=== PATIENT | male | born 1965 | race American Indian/Alaskan Native ===

== ENCOUNTER 2017-11-29 05:25 | Emergency (ER) | payer SELFPAY ==
[2017-11-29 05:31] VITALS: BP 147/98
[2017-11-29] MEDS ORDERED: MOTRIN ONE (05:34)
[2017-11-29] MEDS ORDERED: MOTRIN PO ONE (06:10)
--- NOTE | 2017-11-29 06:43 | XRay Report ---
FINAL REPORT EXAM: XR CALCANEOUS 2+V RT HISTORY: right heel pain COMPARISONS: None. FINDINGS: Watkins and lateral views of the right calcaneus No coalition, gross malalignment or deformity. Joint spaces are within normal limits. No fracture or periosteal reaction. Small calcaneal heel spur and Achilles insertional enthesophytes. IMPRESSION: No acute findings. Achilles insertional calcific tendinopathy and a small calcaneal heel spur may contribute to patient's symptoms.
--- NOTE | 2017-11-29 08:38 | Emergency Department Report ---
ED Lower Extremity HPI - General Chief Complaint: Extremity Injury, Lower Stated Complaint: BODY PAIN Time Seen by Provider: 11/29/17 07:26 Source: patient Mode of arrival: Ambulatory Limitations: No Limitations - History of Present Illness Initial Comments: This is a 52-year-old male here report that he fell after a bee sting yesterday and he said he is having pain to his body that has resolved but now he is having right heel pain the pain is 10 out of 10 and he said it makes it difficult to walk.no numbness or tingling. Denies any fever or chills. Denies any rash or itching to his feet. Denies any change in color. Denies any change in sensation or temperature to feet. Pain feels achy all walking. Better with resting. MD Complaint: foot injury (right heel pain), fall -: During the night Injury: Foot: Right (right heel pain) Type of Injury: other (he reports that he fell and hurt his right heel) Severity: severe Severity scale (0 -10): 10 Improves With: rest Worsens With: weight bearing Context: fall Associated Symptoms: able to partially bear weight. denies: snap/pop sensation , swelling, numbness Treatments Prior to Arrival: other (none) - Related Data Previous Rx's Medication Instructions Recorded Last Taken Type Ibuprofen [Motrin] 800 mg PO Q8HR PRN #15 tablet 11/29/17 Unknown Rx Allergies Allergy/AdvReac Type Severity Reaction Status Date / Time Penicillins Allergy Hives Verified 11/29/17 06:09 ED Review of Systems ROS: Stated complaint: BODY PAIN Other details as noted in HPI Constitutional: denies: chills, fever Respiratory: denies: cough, shortness of breath, SOB with exertion, SOB at rest , stridor, wheezing Cardiovascular: denies: chest pain, palpitations, edema, syncope Gastrointestinal: denies: nausea, vomiting Genitourinary: dysuria Musculoskeletal: arthralgia. denies: back pain, joint swelling, myalgia Skin: denies: rash, lesions, pruritus Neurological: denies: headache, weakness, numbness, paresthesias, abnormal gait , vertigo ED Past Medical Hx - Past Medical History Previous Medical History?: No - Surgical History Past Surgical History?: No - Family History Family history: no significant - Social History Smoking Status: Never Smoker Substance Use Type: None - Medications Home Medications: Home Medications Medication Instructions Recorded Confirmed Last Taken Type Ibuprofen [Motrin] 800 mg PO Q8HR PRN #15 tablet 11/29/17 Unknown Rx ED Physical Exam - General Limitations: No Limitations General appearance: alert, in no apparent distress - Head Head exam: Present: atraumatic, normocephalic, normal inspection - Eye Eye exam: Present: normal appearance, PERRL, EOMI - ENT ENT exam: Present: normal exam, mucous membranes dry, mucous membranes moist - Neck Neck exam: Present: normal inspection, full ROM, other (no C-spine tenderness). Absent: tenderness, lymphadenopathy - Respiratory Respiratory exam: Present: normal lung sounds bilaterally. Absent: respiratory distress, chest wall tenderness - Cardiovascular Cardiovascular Exam: Present: regular rate, normal rhythm, normal heart sounds. Absent: systolic murmur, diastolic murmur - GI/Abdominal GI/Abdominal exam: Present: soft, normal bowel sounds. Absent: tenderness, rigid - Extremities Exam Extremities exam: Present: normal inspection, full ROM, tenderness (mild tenderness to palpate to right calcaneal. No laceration, abrasion, swelling or ecchymotic areas to heals.), normal capillary refill, other (No cce. + 2 pulses in all extremities, no neurovascular compromise. No joint deformities or effusion. No crepitus. +5 strength in all extremities). Absent: pedal edema, joint swelling, calf tenderness - Back Exam Back exam: Present: normal inspection, full ROM, other (ambulates without any difficulties). Absent: tenderness, muscle spasm, paraspinal tenderness, vertebral tenderness, rash noted - Neurological Exam Neurological exam: Present: alert, oriented X3, normal gait, reflexes normal. Absent: motor sensory deficit - Psychiatric Psychiatric exam: Present: normal affect, normal mood - Skin Skin exam: Present: warm, dry, intact, normal color. Absent: rash ED Course Vital Signs 11/29/17 11/29/17 05:24 06:03 Temperature 97.6 F 97.6 F Pulse Rate 74 67 Respiratory 18 18 Rate Blood Pressure 147/98 147/98 O2 Sat by Pulse 93 96 Oximetry - Reevaluation(s) Reevaluation #1: 11/29/17 09:00 She was given Motrin 800 mg at emergency room for right heel pain. Pain is relieved. X-ray found that he has calcaneal spur with some chronic tendanopathy but no acute findings - Orthopedic Splinting/Casting Injury #1 Side: right Lower Extremity Injury Location: foot Other Orthopedic Equipment: crutches ED Lower Extremity MDM - Radiology Data Radiology results: report reviewed X-ray two-view right foot shows Achilles calcific tendon opacity and small calcaneal heel spur. No acute findings. This was dictated by radiologist and report reviewed by myself. Please see report below. Patient: GEO AKBAR MR#: [id number] : 1965 Acct:[id number] Age/Sex: 52 / M ADM Date: 11/29/17 Loc: ED Attending Dr: Ordering Physician: JACQUELINE YATES MD Date of Service: 11/29/17 Procedure(s): XR calcaneous 2+V RT Accession Number(s): [id number] cc: ED MD MILAN Fluoro Time In Minutes: FINAL REPORT EXAM: XR CALCANEOUS 2+V RT HISTORY: right heel pain COMPARISONS: None. FINDINGS: Watkins and lateral views of the right calcaneus No coalition, gross malalignment or deformity. Joint spaces are within normal limits. No fracture or periosteal reaction. Small calcaneal heel spur and Achilles insertional enthesophytes. IMPRESSION: No acute findings. Achilles insertional calcific tendinopathy and a small calcaneal heel spur may contribute to patient's symptoms. Transcribed By: RAFAEL Dictated By: ALEJANDRA HOLT MD Electronically Authenticated By: ALEJANDRA HOLT MD Signed Date/Time: 11/29/17635 DD/ 5 TD/TT: 11/29/17635 - Medical Decision Making This 52-year-old male here reports that he fell yesterday and now is having right heel pain which she has not had in the past. He said he was having body pain but that has resolved. He denies any obvious injuries to his right heel. Patient was seen and examined by myself and extremity exam is normal, pedal pulses are 2+ and bounding. He has good color, sensation, movement and temperature to all his extremities. Patient without any abdomen due to both heels. He has mild tenderness to right heel. X-ray 2 view of right heel dictated by radiologist and report reviewed by myself and no acute findings. He has right heel spur with Achilles tendonopathy which is chronic. I discussed x-ray results with patient and his diagnosis and treatment plan. I discussed with him that he needs to follow-up with Dr. Haines primary care doctor. Patient is requesting crutches because he said it hurts when he walks on his right foot. Pain controlled with Motrin Right heel pain-Motrin 800 milligrams by mouth 1 given in emergency room and pain is better and will discharge him on Motrin. Referred to [facility] as he does not have a primary care doctor and also to wellness specialist. Patient discharged home in stable condition. Vital signs are stable, pain is controlled. He was given crutches with return demonstration. I explained to him that he needs to follow-up with wellness specialist primary care physician and he voiced understanding .discharged home with prescription for Motrin. - Differential Diagnosis heel fracture, heel spur, plantar fasciitis, tendinitis, sprain, MSK pain Critical care attestation.: If time is entered above; I have spent that time in minutes in the direct care of this critically ill patient, excluding procedure time. ED Disposition Clinical Impression: Calcaneal spur, right, Right foot pain, Calcific Achilles tendonitis Disposition: - TO HOME OR SELFCARE Is pt being admited?: No Does the pt Need Aspirin: No Condition: Stable Instructions: Arthralgia (ED), Achilles Tendinitis (ED), Ankle Exercises (GEN) , How to Give a Foot Massage (GEN), Crutch Instructions (ED) Additional Instructions: Please use crutches as discussed. Follow-up Foot DrClyde in 3-5 days follow up at [facility] for primary care Rest Affected area for 3 days See discharge instruction in Rice therapy Prescriptions: Ibuprofen [Motrin] 800 mg PO Q8HR PRN #15 tablet PRN Reason: foot pain Referrals: PRIMARY CARE, [Primary Care Provider] - 3-5 Days GERALDO COLON DPM [Staff Physician] - 3-5 Days [facility] [Outside] - 3-5 Days Forms: Work/School Release Form(ED)
== END 2017-11-29 09:33 | disposition home or self-care (01) ==
LOC: ED 05:25
DX: M77.31 Calcaneal spur, right foot (principal); M76.61 Achilles tendinitis, right leg; Z88.0 Allergy status to penicillin
CPT/HCPCS: 99283

== ENCOUNTER 2018-08-14 18:40 | Emergency (ER) | payer SELFPAY ==
--- NOTE | 2018-08-14 19:26 | Emergency Department Report ---
Blank Doc - Documentation Documentation: 53 y/o male c/o CP, SOB and dry mouth and BIRCH. pain 12/12. PMH HTN not had any meds in 4 months. Orders: CP protocol.
[2018-08-14 19:59] LABS: Basophils # (Auto) 0.1 K/mm3 (0.0-0.1); Basophils % (Auto) 0.9 % (0.0-1.8); Eosinophils # (Auto) 0.2 K/mm3 (0.0-0.4); Eosinophils % (Auto) 1.5 % (0.0-4.3); Hematocrit 41.9 % (35.5-45.6); Hemoglobin 14.2 gm/dl (11.8-15.2); Lymphocytes # (Auto) 2.9 K/mm3 (1.2-5.4); Lymphocytes % (Auto) 27.2 % (13.4-35.0); Mean Corpuscular HGB Conc 34 % (32-34); Mean Corpuscular Volume 82 fl (84-94); Monocytes # (Auto) 1.1 K/mm3 (0.0-0.8); Platelet Count 241 K/mm3 (140-440); Red Blood Count 5.11 M/mm3 (3.65-5.03); Red Cell Distribution Width 15.5 % (13.2-15.2)
[2018-08-14 20:17] LABS: Alanine Aminotransferase 18 units/L (7-56); Albumin 4.2 g/dL (3.9-5); BUN/Creatinine Ratio 12; Blood Urea Nitrogen 13 mg/dL (9-20); Calcium 9.3 mg/dL (8.4-10.2); Hemolysis Index 89
--- NOTE | 2018-08-14 20:25 | XRay Report ---
PROCEDURE: XR CHEST ROUTINE 2V TECHNIQUE: PA and lateral chest radiographs were obtained. HISTORY: Chest Pain COMPARISONS: None. FINDINGS: Heart: Normal. Mediastinum/Vessels: Normal. Lungs/Pleural space: A small well-defined nodule measuring 6 mm is noted in the right lower lung on the frontal view. There are no confluent infiltrates. Pleural spaces are clear. Bony thorax: No acute osseous abnormality. IMPRESSION: A 6 mm nodule in the right mid lung most likely represents a calcified granuloma. Compar yony with any prior studies would be of help. Otherwise a CT chest is recommended.. This document is electronically signed by Deshaun Childs MD., August 14 2018 08:23:40 PM ET
--- NOTE | 2018-08-14 23:59 | Emergency Department Report ---
HPI - General Chief Complaint: Chest Pain Time Seen by Provider: 08/14/18 22:20 - HPI HPI: 53-year-old -Italian male presents to the emergency department with a complaint of some throat pain, chest pain, and spitting up blood. He says it all started last night when he had some type of apneic episode. At least his said that he stopped breathing for a short amount of time. He does not have any known sleep apnea and says that he is not a known smoker. He woke up with a very dry, sore throat. He also feels that he has a lot of mucus and secretions that he has been trying to get up. Earlier today he thought it was mucus and he had some blood come up. He also complained of some midsternal, nonradiating chest pain. It has been going on intermittently over the past few days. He denies any fever, back pain, shortness of breath. He has not taken anything for his symptoms to presentation. No sick contacts at home. He does not have a primary care physician. ED Past Medical Hx - Social History Smoking Status: Never Smoker Substance Use Type: None - Medications Home Medications: Home Medications Medication Instructions Recorded Confirmed Last Taken Type Ibuprofen [Motrin] 800 mg PO Q8HR PRN #15 tablet 11/29/17 Unknown Rx Sulfamethoxazole/Trimethoprim 1 each PO BID #14 tablet 08/15/18 Unknown Rx [Bactrim DS TAB] ED Review of Systems ROS: Stated complaint: CHEST PAIN/ELMER/VOMITING BLOOD Other details as noted in HPI Comment: All other systems reviewed and negative Constitutional: denies: chills, fever Eyes: denies: eye pain, vision change ENT: throat pain. denies: ear pain Respiratory: denies: cough, wheezing Cardiovascular: chest pain. denies: palpitations Gastrointestinal: denies: abdominal pain, diarrhea Genitourinary: denies: dysuria, discharge Musculoskeletal: denies: back pain, arthralgia Skin: denies: rash, lesions Neurological: denies: headache, weakness Physical Exam - Physical Exam Vital Signs: Vital Signs 08/14/18 08/14/18 08/14/18 19:21 22:17 22:30 Temperature 98.6 F Pulse Rate 110 H 98 H 88 Respiratory 16 12 Rate Blood Pressure 157/95 Blood Pressure 172/117 [Left] O2 Sat by Pulse 97 99 Oximetry 08/14/18 08/14/18 08/14/18 22:45 23:00 23:15 Temperature Pulse Rate 87 85 76 Respiratory 17 17 15 Rate Blood Pressure 157/95 151/102 151/102 Blood Pressure [Left] O2 Sat by Pulse 96 96 98 Oximetry 08/14/18 08/14/18 23:30 23:46 Temperature Pulse Rate 77 76 Respiratory 15 15 Rate Blood Pressure 131/78 151/102 Blood Pressure [Left] O2 Sat by Pulse 93 92 Oximetry Physical Exam: GENERAL: The patient is well-developed well-nourished. HEENT: Normocephalic. Atraumatic. Patient has moist mucous membranes. No drooling or trismus. Patient has moderate to severe tonsillar hypertrophy with bilateral tonsillar exudates. EYES: Extraocular motions are intact. Pupils are equal and reactive to light bilaterally. NECK: Supple. Trachea is midline. CHEST/LUNGS: Clear to auscultation. There is no respiratory distress noted. HEART/CARDIOVASCULAR: Regular. There is no tachycardia. There is no obvious murmur. ABDOMEN: Abdomen is soft, nontender. Patient has normal bowel sounds. There is no abdominal distention. SKIN: Skin is warm and dry. NEURO: The patient is awake, alert, and oriented. The patient is cooperative. The patient has no focal neurologic deficits. The patient has normal speech. MUSCULOSKELETAL: There is no tenderness or deformity. There is no limitation range of motion. There is no evidence of acute injury. ED Course Vital Signs 08/14/18 08/14/18 08/14/18 19:21 22:17 22:30 Temperature 98.6 F Pulse Rate 110 H 98 H 88 Respiratory 16 12 Rate Blood Pressure 157/95 Blood Pressure 172/117 [Left] O2 Sat by Pulse 97 99 Oximetry 08/14/18 08/14/18 08/14/18 22:45 23:00 23:15 Temperature Pulse Rate 87 85 76 Respiratory 17 17 15 Rate Blood Pressure 157/95 151/102 151/102 Blood Pressure [Left] O2 Sat by Pulse 96 96 98 Oximetry 08/14/18 08/14/18 23:30 23:46 Temperature Pulse Rate 77 76 Respiratory 15 15 Rate Blood Pressure 131/78 151/102 Blood Pressure [Left] O2 Sat by Pulse 93 92 Oximetry ED Medical Decision Making - Lab Data Result diagrams: 08/14/18 19:45 08/14/18 19:45 - EKG Data -: EKG Interpreted by Id EKG shows normal: sinus rhythm, axis, intervals, QRS complexes, ST-T waves Rate: normal - EKG Data When compared to previous EKG there are: previous EKG unavailable Interpretation: normal EKG - Radiology Data Radiology results: image reviewed PROCEDURE: XR CHEST ROUTINE 2V TECHNIQUE: PA and lateral chest radiographs were obtained. HISTORY: Chest Pain COMPARISONS: None. FINDINGS: Heart: Normal. Mediastinum/Vessels: Normal. Lungs/Pleural space: A small well-defined nodule measuring 6 mm is noted in the right lower lung on the frontal view. There are no confluent infiltrates. Pleural spaces are clear. Bony thorax: No acute osseous abnormality. IMPRESSION: A 6 mm nodule in the right mid lung most likely represents a calcified granuloma. Comparison with any prior studies would be of help. Otherwise a CT chest is recommended.. This document is electronically signed by Seferino Childs MD., August 14 2018 08:23:40 PM ET Transcribed By: [facility] Dictated By: SEFERINO CHILDS Electronically Authenticated By: SEFERINO CHILDS Signed Date/Time: 08/14/182024 - Medical Decision Making This patient presents to the emergency department with the complaints of some th roat discomfort, the sensation of a severely dry throat that goes down into the chest, some intermittent chest pains, and an episode of some type of expectoration or spitting up of blood. An EKG was done that does not show any signs of ST elevation [place], ischemia or dysrhythmia. Chest x-ray did not show any pleural effusions, pneumonia, pneumothorax, as read by radiology as having a incidental 6 mm right pulmonary nodule. Patient's labs were unremarkable including negative troponins 2 and a negative d-dimer. There are no leukocytosis, electrolyte abnormalities, renal insufficiency or glucose abnormalities. He was negative for rapid strep and mono. On examination, the patient does have moderate to severe tonsillar hypertrophy to the point where they are almost touching as well as some exudates. The patient will be treated with Bactrim and was given a dose of Decadron. The patient also had some complaint of his partner telling him that he had an apneic episode last night. I believe the patient may have some undiagnosed sleep apnea and we discussed this and the possible need for otolaryngology and/or a sleep study. The patient has very little risk factors for coronary artery disease and does not have any current chest pain at this time. He was instructed that he must return to the emergency department with any return of his chest pain, return of the bloody sputum or hematemesis, worsening of his symptoms, with any acute distress. He was given referrals for primary care, cardiology and gastroenterology. We discussed the incidental finding of the pulmonary nodule. - Differential Diagnosis [place], PE, [place], Strep pharyngitis Critical Care Time: No Critical care attestation.: If time is entered above; I have spent that time in minutes in the direct care of this critically ill patient, excluding procedure time. ED Disposition Clinical Impression: Throat pain, Strep pharyngitis, Bloody sputum, Intermittent chest pain, Pulmonary nodule Disposition: TO HOME OR SELFCARE Is pt being admited?: No Condition: Stable Instructions: Chest Pain (ED), Strep Throat (ED), Pulmonary Nodules (ED) Additional Instructions: Please follow up with a primary care physician. I have given a referral for a local metal model builder, Dr. Pitts, to follow up regarding your questionable GI bleed. I have given you a referral for a local backend tester, Dr. Quigley, to follow up regarding your intermittent chest pains. You may need to see ENT (Ear Nose Throat) if your throat pain continues. Return to the emergency department immediately with any return of her chest pain, inability to swallow, inability to drink/dehydrated, worsening of your symptoms, any acute distress. Prescriptions: Sulfamethoxazole/Trimethoprim [Bactrim DS TAB] 1 each PO BID #14 tablet Referrals: FRANCIA QUIGLEY MD [Staff Physician] - 2-3 Days GENI PITTS MD [Staff Physician] - 2-3 Days NICHOL FALCON MD [Staff Physician] - 2-[address] [facility] [Outside] - 2-3 Days Time of Disposition: 01:18
[2018-08-15] MEDS ORDERED: DECADRON PO ONE (00:50)
[2018-08-15] MEDS ORDERED: BACTRIM DS PO ONE (00:50)
[2018-08-15 01:16] VITALS: BP 145/97
== END 2018-08-15 01:31 | disposition home or self-care (01) ==
LOC: ED 18:40
DX: J02.0 Streptococcal pharyngitis (principal); R91.1 Solitary pulmonary nodule; R04.2 Hemoptysis; R07.89 Other chest pain; Z88.0 Allergy status to penicillin
CPT/HCPCS: 36415; 71046; 80053; 84484; 85025; 85379; 86308; 87430; 93005; 93010; 99284; J8540

== ENCOUNTER 2019-07-30 13:11 | Emergency (ER) | payer SELFPAY ==
--- NOTE | 2019-07-30 13:24 | Event Note ---
ED Screening Note ED Screening Note: fever body aches This initial assessment/diagnostic orders/clinical plan/treatment(s) is/are subject to change based on patients health status, clinical progression and re- assessment by fellow clinical providers in the ED. Further treatment and workup at subsequent clinical providers discretion. Patient/guardian urged not to elope from the ED as their condition may be serious if not clinically assessed and managed. Initial orders include: patient refuses MSE to treatment room
--- NOTE | 2019-07-30 14:16 | XRay Report ---
CHEST 2 VIEWS INDICATION / CLINICAL INFORMATION: sob,cough and rales. COMPARISON: 08/14/2018 FINDINGS: SUPPORT DEVICES: None. HEART / MEDIASTINUM: No significant abnormality. LUNGS / PLEURA: There are pulmonary opacities bilaterally, mostly in the mid and lower lung hendrix. N o significant pleural effusion. No pneumothorax. ADDITIONAL FINDINGS: No significant additional findings. IMPRESSION: 1. Bilateral pulmonary opacities, most likely bilateral pneumonia. Clinical correlation is recommende d. Signer Name: Shira Akins MD Signed: 07/30/2019 2:11 PM Workstation Name: [id number]
[2019-07-30] MEDS ORDERED: AZITHROMYCIN 500 MG in SODIUM CHLORIDE 0.9% 250ML 250 ML IV ONE (15:15)
[2019-07-30] MEDS ORDERED: HYDROcodone/ACETAMINOPHEN 10-325MG TAB PO ONE (15:31)
--- NOTE | 2019-07-30 15:31 | Emergency Department Report ---
- General Chief Complaint: Upper Respiratory Infection Stated Complaint: BLLE PAIN,SOB,CP,HEADACHE Time Seen by Provider: 07/30/19 13:41 Source: patient Mode of arrival: Ambulatory Limitations: No Limitations - History of Present Illness Initial Comments: 54-year-old -[place] male presents to the emergency room complaining lateral extremity pain shortness of breath chest pain and headache. Patient states that he went to [facility] with no prescription. Patient states that he went there on Friday. Patient has a past medical history of hypertension. MD Complaint: fever, other (Chest pain, shortness of breath, bilateral lower extremity pain and body aches. ) Onset/Timin -: week(s) Severity scale (0 -10): 8 Quality: aching Consistency: constant Improves With: nothing Worsens With: nothing Associated Symptoms: fever, chills, myalgias, headache, chest pain, shortness of breath Treatments Prior to Arrival: none - Related Data Previous Rx's Medication Instructions Recorded Last Taken Type Ibuprofen [Motrin] 800 mg PO Q8HR PRN #15 tablet 11/29/17 Unknown Rx Sulfamethoxazole/Trimethoprim 1 each PO BID #14 tablet 08/15/18 Unknown Rx [Bactrim DS TAB] DOXYCYCLINE Hyclate [Vibramycin 100 mg PO Q12HR #20 capsule 07/30/19 Unknown Rx CAP] Allergies Allergy/AdvReac Type Severity Reaction Status Date / Time Penicillins Allergy Hives Verified 08/14/18 20:26 ED Review of Systems ROS: Stated complaint: BLLE PAIN,SOB,CP,HEADACHE Other details as noted in HPI Comment: All other systems reviewed and negative ED Past Medical Hx - Past Medical History Previous Medical History?: Yes Hx Hypertension: Yes - Surgical History Past Surgical History?: No - Social History Smoking Status: Never Smoker Substance Use Type: None - Medications Home Medications: Home Medications Medication Instructions Recorded Confirmed Last Taken Type Ibuprofen [Motrin] 800 mg PO Q8HR PRN #15 tablet 11/29/17 Unknown Rx Sulfamethoxazole/Trimethoprim 1 each PO BID #14 tablet 08/15/18 Unknown Rx [Bactrim DS TAB] DOXYCYCLINE Hyclate [Vibramycin 100 mg PO Q12HR #20 capsule 07/30/19 Unknown Rx CAP] ED Physical Exam - General Limitations: No Limitations General appearance: alert, in distress - Head Head exam: Present: atraumatic, normocephalic - Eye Eye exam: Present: normal appearance - ENT ENT exam: Present: mucous membranes moist - Neck Neck exam: Present: normal inspection, full ROM - Respiratory Respiratory exam: Present: normal lung sounds bilaterally. Absent: respiratory distress - Expanded Lower Extremity Exam Left Knee exam: Present: normal inspection, full ROM Lower Leg exam: Present: full ROM, tenderness. Absent: swelling Right Foot/Toe exam: Present: full ROM, tenderness Neuro vascular tendon exam: Present: no vascular compromise - Back Exam Back exam: Present: normal inspection - Neurological Exam Neurological exam: Present: alert, oriented X3 - Psychiatric Psychiatric exam: Present: normal affect, normal mood - Skin Skin exam: Present: warm, dry, intact, normal color. Absent: rash ED Course Vital Signs 07/30/19 07/30/19 07/30/19 13:18 15:29 15:46 Temperature 98.7 F Pulse Rate 102 H Respiratory 18 20 18 Rate Blood Pressure 142/106 O2 Sat by Pulse 95 99 Oximetry ED Medical Decision Making - Lab Data Result diagrams: 07/30/19 Unknown 07/30/19 Unknown - Medical Decision Making 54-year-old -[place] male presents to the emergency room complaining lateral extremity pain shortness of breath chest pain and headache. Patient states that he went to [facility] with no prescription. Patient states that he went there on Friday. Patient has a past medical history of hypertension. Chest x-ray showed bilateral opacities concerning for pneumonia. Patient came in mildly tach at 102. This provider ordered CBC CMP flu CRP lactic acid and CK. Patient is given IV with normal saline will be given a azithromycin 500 mg IV as well as Rocephin 1 g IV. Patient has been placed on droplet precaution. Covid-19 has been filled out and sent. Complete antibiotics as prescribed. Please increase your fluid intake. You can take Tylenol as needed for any fevers or pain. Return back to the emergency room if your symptoms worsen. Follow-up with a primary care provider in the next 3 to 5 days. Critical care attestation.: If time is entered above; I have spent that time in minutes in the direct care of this critically ill patient, excluding procedure time. ED Disposition Clinical Impression: Pneumonia Qualifiers: Pneumonia type: due to unspecified organism Laterality: bilateral Lung location: lower lobe of lung Qualified Code(s): J18.9 - Pneumonia, unspecified organism Disposition: DC-01 TO HOME OR SELFCARE Is pt being admited?: No Does the pt Need Aspirin: No Condition: Stable Instructions: Bacterial Pneumonia (ED) Additional Instructions: Complete antibiotics as prescribed. Please increase your fluid intake. You can take Tylenol as needed for any fevers or pain. Return back to the emergency room if your symptoms worsen. Follow-up with a primary care provider in the next 3 to 5 days. You are being placed on a 14-day quarantine. Prescriptions: DOXYCYCLINE Hyclate [Vibramycin CAP] 100 mg PO Q12HR #20 capsule Referrals: PRIMARY MD PARVIZ [Primary Care Provider] - 3-5 Days KALEIGH PARHAM MD [Staff Physician] - 3-5 Days Forms: Work/School Release Form(ED)
[2019-07-30] MEDS ORDERED: cefTRIAXone/NS 1 GM/50 ML 1 GM/50 ML BAG IV ONE (15:32)
[2019-07-30 15:44] LABS: Basophils % (Auto) 0.3 % (0.0-1.8); Eosinophils % (Auto) 0.1 % (0.0-4.3); Hematocrit 39.5 % (35.5-45.6); Hemoglobin 12.9 gm/dl (11.8-15.2); Lymphocytes # (Auto) 1.2 K/mm3 (1.2-5.4); Lymphocytes % (Auto) 22.9 % (13.4-35.0); Mean Corpuscular HGB Conc 33 % (32-34); Mean Corpuscular Volume 81 fl (84-94); Monocytes # (Auto) 0.5 K/mm3 (0.0-0.8); Monocytes % (Auto) 9.8 % (0.0-7.3); Platelet Count 161 K/mm3 (140-440)
[2019-07-30 16:02] LABS: Alanine Aminotransferase 21 units/L (7-56); Albumin 3.6 g/dL (3.9-5); BUN/Creatinine Ratio 9; Blood Urea Nitrogen 10 mg/dL (9-20); Hemolysis Index 15
[2019-07-30 16:03] LABS: C-Reactive Protein 2.9 mg/dL (0.00-1.30)
[2019-07-30] MEDS ORDERED: SODIUM CHLORIDE 0.9% 1000 ML 1,000 ML IV ONE (16:26)
[2019-07-30 20:31] VITALS: BP 140/98
== END 2019-07-30 20:31 | disposition home or self-care (01) ==
LOC: ED 13:11
DX: J18.9 Pneumonia, unspecified organism (principal); I10 Essential (primary) hypertension; Z79.899 Other long term (current) drug therapy
CPT/HCPCS: 36415; 71046; 80053; 82550; 85025; 86140; 87400; 96365; 96368; 99284; J0456; J0696; J7030; J7050